=== PATIENT | female | born 1965 | race Caucasian/White ===

== ENCOUNTER → 2017-04-18 | Outpatient (CLI) | payer BC ==
--- NOTE | 2017-04-18 13:40 | MAMMOGRAPHY REPORT ---
BILATERAL DIGITAL SCREENING MAMMOGRAM TOMOSYNTHESIS WITH CAD: 04/18/2017 CLINICAL HISTORY: Routine screening. Patient has no complaints. TECHNIQUE: Breast tomosynthesis in addition to standard 2D mammography was performed. Current study was also evaluated with a Computer Aided Detection (CAD) system. COMPARISON: Comparison is made to exams dated: 04/14/2016 mammogram, 04/06/2015 mammogram, 04/02/2014 m ammogram, 04/01/2013 mammogram, 03/29/2012 mammogram, and 03/28/2011 mammogram - [facility] enter. BREAST COMPOSITION: The tissue of both breasts is almost entirely fatty. FINDINGS: No suspicious masses, calcifications, or areas of architectural distortion are noted in ei ther breast. There has been no significant interval change compared to prior exams. IMPRESSION: ACR BI-RADS CATEGORY 1: NEGATIVE There is no mammographic evidence of malignancy. A 1 year screening mammogram is recommended. The pa tient will receive written notification of the results. Approximately 10% of breast cancers are not detected with mammography. A negative mammographic report should not delay biopsy if a clinically suggestive mass is present. Bailey Traore M.D. /:04/18/2017 09:59:21 [employer]: [employer])(M), [facility] letter sent: Normal 1/2 BI-RADS Code: ACR BI-RADS Category 1: Negative
== END | disposition home or self-care (01) ==
LOC: C.MAMM 08:17
PROVIDERS: ATTEND Obstetrics & Gynecology
DX: Z12.31 Encounter for screening mammogram for malignant neoplasm of breast (principal)

== ENCOUNTER → 2017-11-13 | Outpatient (CLI) | payer OTHER ==
--- NOTE | 2017-11-13 16:53 | DIAGNOSTIC IMAGING REPORT ---
R KNEE 2 VIEWS ROUTINE CLINICAL HISTORY: RIGHT KNEE PAIN COMPARISON: None. DISCUSSION: No acute fractures are visualized. On the lateral view there is a contour deformity involving one of the anterior femoral condyles. This is felt to be chronic. There is no radiographic evidence of a joint effusion. There are no erosive or destructive changes. IMPRESSION: 1. No acute fractures or dislocations identified 2. No erosive or destructive changes are visualized Electronically signed by: Magnus Souza M.D. 11/13/2017 4:51 PM Dictated Date/Time: 11/13/2017 4:50 PM
== END | disposition home or self-care (01) ==
LOC: C.RAD1850 15:20
PROVIDERS: ATTEND Family Medicine
DX: M25.561 Pain in right knee (principal)